=== PATIENT | female | born 1970 | race Hispanic/Latino ===

== ENCOUNTER 2016-10-14 14:24 | Emergency (ER) | payer SELFPAY ==
[~2016-10-14] VITALS: Ht 144.8 cm; Wt 62.6 kg
[2016-10-14 14:42] VITALS: BP 122/77; PULSE 73; RESP 16; O2SAT 98
[2016-10-14] MEDS ORDERED: [UNRECOGNIZED DRUG - REMARK] (14:47)
--- NOTE | 2016-10-14 15:30 | ED.REPORT ---
HPI-General Illness Date of Service Oct 14, 2016 ED Provider: The patient is a 45 year old female with history of diabetes and a previous cholecystectomy, who presents to the emergency department with multiple complaints. Since last night she has been complaining of left-sided chest pain, abdominal pain, and head pain. Her son is concerned that her symptoms are related to recent family stress. She has had similar symptoms in the past related to stress. Her son states that him and his decided to separate last night and this has stressed his mother. She has not had any suicidal ideation, fevers, chills or vomiting. Nursing Notes Stated Complaint: DIZZY, WEAKNESS, ABDOMINAL PAIN Chief Complaint: Female Abdominal Pain Nursing Notes Reviewed: Yes Allergies: Coded Allergies: No Known Allergies (Verified , 10/14/16) Scheduled ([pils for diabetes]) Unknown Dose DAILY General Time Seen by MD: 15:29 Chief Complaint Multip medical complaints Hx Obtained From: Patient Arrived By: Walk-in Sudden in Onset?: Yes Onset Occurred: Yesterday Symptom Duration: Since onset Location: : Abdomen: Chest: Head Quality: Painful Severity: Current: Mild Severity: Maximum: Moderate Recent Healthcare: No recent doctor visit, No recent hospitalization Similar Sx Previous: Yes Past Medical History Past Medical History Reports: Diabetes mellitus Past Surgical History Reports: Cholecystectomy Family History Noncontributory Social History Other Social History: Good social support, Local resident Ambulatory Status Independent Review of Systems Full Review of Systems Constitutional: Denies: Chills, Fever Cardiovascular: Reports: Chest pain GI: Reports: Abdominal pain, Denies: Vomiting Neurologic: Reports: Headache Psychiatric: Reports: Stress, Denies: Suicidal ideation Complete sys rev & neg: except as marked. Physical Exam Vital Signs Vital Signs Date Time Temp Pulse Resp B/P Pulse Ox O2 Delivery O2 Flow Rate FiO2 10/14/16 17:20 36.9 71 18 132/63 98 Room Air 10/14/16 14:42 36.4 73 16 122/77 98 Room Air Initial VS: Reviewed Head / Eyes: Atraumatic, Normocephalic, PERRL Neck: Supple, Non-tender, Full range of motion Cardiovascular: Regular rate & rhythm, Heart sounds normal, Intact distal pulses Abdomen / GI: Soft, Non-tender, No guarding, No rebound, No distention Lymphatic: No lymphadenopathy Extremities: Vascular intact, Neuro intact, No swelling, No tenderness Skin: Warm, Dry, No cyanosis Psychiatric: Mood/affect normal, Behavior normal, Normal thought content General/Constitutional: Awake, Alert, Cooperative ENT: Atraumatic, Airway patent, Mucous membranes moist No deformity or sign of trauma. Respiratory / Chest: Atraumatic, Breath sounds NL, Breath sounds = bilat, No respiratory distress, No rales, No rhonchi, No wheezing, No crepitus Tenderness of the left lateral chest wall. Lower Extremity / Pelvis / MS: No deformity, Neurologic intact, Vascular intact , No edema No calf swelling or tenderness Neurologic: Oriented X3, Speech NL, No motor deficits, No sensory deficits, Cerebellar NL, Memory NL Strength is 5/5 to all 4 extremities Interpretation & Diagnostics Interpretation & Diagnostics: Urine : negative Urine dip: No signs of infection, large blood present Lab Results Interpretation Result Diagram: 10/14/16 1505 10/14/16 1505 Test 10/14/16 15:05 White Blood Count 6.7th/mm3 (3.8-10.1) Red Blood Count 5.17mil/mm3 (3.90-5.20) Hemoglobin 15.7g/dL (12.0-15.6) Hematocrit 45.0% (35.0-46.0) Mean Corpuscular Volume 87.0fL (81-100) Mean Corpuscular Hemoglobin 30.4pg (27.0-35.0) Mean Corpuscular Hemoglobin Concent 34.9% (32.0-37.0) Red Cell Distribution Width 12.4% (12.3-15.4) Platelet Count 280bil/L (150-400) Neutrophils (%) (Auto) 67.5% (40-74) Lymphocytes (%) (Auto) 24.8% (14-46) Monocytes (%) (Auto) 6.9% (4-12) Eosinophils (%) (Auto) 0% (0-5) Basophils (%) (Auto) 0.3% (0-3) Hold Purple Top Tube Received (Received) Hold Blue Top Tube Received (Received) Hold Urine Received (Received) Sodium Level 130mEq/L (134-144) Potassium Level 4.3mEq/L (3.5-5.2) Chloride Level 91mEq/L (97-108) Carbon Dioxide Level 25mmol/L (18-29) Blood Urea Nitrogen 15mg/dL (6-24) Creatinine 0.54mg/dL (0.57-1.00) Estimat Glomerular Filtration Rate 173mL/min (>59) Glucose Level 433mg/dL (60-99) Calcium Level 9.5mg/dL (8.5-10.1) Magnesium Level 2.1mg/dL (1.6-2.6) Total Bilirubin 0.5mg/dL (0.0-1.2) Aspartate Amino Transf (AST/SGOT) 33U/L (0-50) Alanine Aminotransferase (ALT/SGPT) 28U/L (0-32) Alkaline Phosphatase 124U/L (25-150) Total Protein 8.0g/dL (6.4-8.4) Albumin 4.8g/dL (3.4-5.0) Lipase 30U/L (13-60) Hold [place] Top Tube Received (Received) Hold [place] Top Tube Received (Received) ECG Interpretation ECG Interpretation: Sinus rhythm with a rate of 70 bpm Normal intervals Normal axis No ST segment changes No T wave abnormalities Time: 16:13 Interpreted by: ED physician Re-Eval/Medical Decision Med Decision/Clinical Course The patient is a 45 year old female with history of diabetes and a previous cholecystectomy, who presents to the emergency department with multiple complaints. Since last night she has been complaining of left-sided chest pain, abdominal pain, and head pain. Her son is concerned that her symptoms are related to recent family stress. She has had similar symptoms in the past related to stress. Her son states that him and his decided to separate last night and this has stressed his mother. She has not had any suicidal ideation, fevers, chills or vomiting. EKG obtained and interpreted by myself as documented above. Urine : negative Urine dip: No signs of infection, large blood present, irregular vaginal bleeding setting of menopause CBC unremarkable, CMP: glucose elevated at 433, otherwise CMP is unremarkable. Upon further conversation with patient and family all of the symptoms occurred in the setting of multiple stressors last night in the setting of breakup between patient's son and her . This has been very stressful for the patient and culminated in the set of symptoms that she is currently having. Here in the emergency department she is much more calm and reports that her symptoms have resolved. She is with stable vital signs and is afebrile without tachycardia, tachypnea or shortness of breath. Physical exam reveals no evidence of DVT and she has no recent major risk factors for development of DVT or PE. I do not feel that workup for DVT/PE is indicated. Overall presentation and convincing for acute coronary syndrome and I do not feel that ACS workup is indicated. She has no ongoing respiratory symptoms with good bilateral breath sounds and no cough/fever. I do not feel the chest x-ray will be of much diagnostic utility. Patient seems to be having an acute stress reaction setting of altered for recent stressors. She has been seen and evaluated by her emergency department psych social worker and provided with resources. At this time she is stable from a medical and psychiatric perspective and I feel that she is appropriate for discharge home. Follow-up and return precautions were reviewed in detail and she was discharged in stable condition. She has extensive family resources available at this time as well. Discussed with the patient her hyperglycemia and she will arrange for a follow- up appointment with her primary care physician and consideration additional antihyperglycemic treatment. Source of Hx: Old records, Family Time of Eval: 17:05 Re-Evaluation/Progress Note: Discussed plan for social work consult and discharge. All questions were addressed. Consultation : Consulted With: home mission worker Call Returned at: 17:06 Note: Discussed patient's case with the psych social worker. She will see the patient prior to discharge. Counseled Regarding: Diagnosis, Lab results, Need for follow-up, When/why to return to ED Discharge & Departure Primary Impression: Pain Additional Impressions: Stress Hyperglycemia Acute stress reaction Acute situational disturbance Disposition: Home Discharge Condition All VS Reviewed: Yes Condition: Stable Additional Instructions: Thank you for seeking care at the emergency room. It is difficult for us to make definitive diagnoses in the ED but we believe that you are experiencing physical symptoms related to stress. Our primary goal today in the ED was to evaluate you for any life-threatening conditions. Your evaluation was reassuring. You should follow-up with a primary doctor in the next few weeks. We have given you a referral to [facility]. Your blood glucose level today was elevated and you may need to be on insulin. This is something that can be discussed with a primary doctor. You should return to the ED immediately if you develop increased pain, fevers, vomiting, cough, shortness of breath, suicidal thoughts, or any other concerning signs or symptoms. Thank you for letting us partake in your care today. Referrals: Nishant Galeas MD (PCP) Scribe Attestation Portions of this note were transcribed by Anna Rothman. I, Dr. Gutierrez personally performed the history, physical exam and medical decision-making; I reviewed and confirmed the accuracy of the information in the transcribed note. Signed by: Nancy Fletcher, 10/14/2016 at 1735. copies to: Nishant Galeas MD, Beck O MD Oct 14, 2016 15:30 Anna Rothman Oct 14, 2016 15:42
[2016-10-14 16:09] LABS: BASOPHILS % (AUTO) 0.3 % (0-3); EOSINOPHILS % (AUTO) 0 % (0-5); MONOCYTES % (AUTO) 6.9 % (4-12); Mean Corpuscular Hemoglobin 30.4 pg (27.0-35.0); NEUTROPHILS % (AUTO) 67.5 % (40-74); Platelet Count 280 bil/L (150-400)
[2016-10-14 16:17] LABS: Magnesium 2.1 mg/dL (1.6-2.6)
[2016-10-14 17:20] VITALS: BP 132/63; PULSE 71; RESP 18; O2SAT 98
== END 2016-10-14 17:28 | disposition home or self-care (01) ==
LOC: SED 14:24
DX: R07.9 Chest pain, unspecified (principal); R10.9 Unspecified abdominal pain; R51 Headache; F43.0 Acute stress reaction; E11.65 Type 2 diabetes mellitus with hyperglycemia; Z90.49 Acquired absence of other specified parts of digestive tract; Z79.84 Long term (current) use of oral hypoglycemic drugs